=== PATIENT | male | born 2000 | race Caucasian/White ===

== ENCOUNTER 2021-12-20 22:45 | Emergency (ER) | payer SELFPAY ==
[~2021-12-20] VITALS: Ht 177.8 cm; Wt 80.7 kg
== END 2021-12-21 01:50 | disposition home or self-care (01) ==
LOC: ED 22:45
DX: S66.911A Strain of unspecified muscle, fascia and tendon at wrist and hand level, right hand, initial encounter (principal); S00.83XA Contusion of other part of head, initial encounter; S09.90XA Unspecified injury of head, initial encounter; X58.XXXA Exposure to other specified factors, initial encounter; Y93.89 Activity, other specified; Y92.89 Other specified places as the place of occurrence of the external cause; Y99.8 Other external cause status